=== PATIENT | female | born 1930 | race Caucasian/White ===

== ENCOUNTER 2018-05-21 18:33 | Emergency (ER) | payer OTHER ==
[~2018-05-21] VITALS: Ht 165.1 cm; Wt 66.7 kg
--- NOTE | 2018-05-21 18:35 | NUR ---
PT BIB [facility] TO ER BED 7
[2018-05-21 18:39] VITALS: BP 159/78
--- NOTE | 2018-05-21 18:43 | NUR ---
PATIENT BIB AMBULANCE TO ED WITH THE CHIEF C/O RIGHT KNEE PAIN. SWELLING RIGHT KNEE, BRIUSE NOTED. + CIRCULATION, +SENSATION. PT ABLE TO MOVE KNEE WITH PAIN. PT STATES SHE TWISTED HER LEG WHILE STANDING UP AND FELL ON HER KNEE. DENIES HITTING HEAD. NO LOC. DENIES N/V/D. SKIN IS PINK/WARM/DRY; AAOX4 WITH EVEN AND STEADY GAIT. PT DENIES ANY FEVER, CP, SOB, OR COUGH AT THIS TIME. PATIENT STATES PAIN OF 6/10 AT THIS TIME. PATIENT POSITIONED FOR COMFORT. HOB ELEVATED. BEDRAILS UP X2. BED DOWN. ER MD MADE AWARE OF PT STATUS.
--- NOTE | 2018-05-21 19:17 | NUR ---
REPORT GIVEN TO FILTER MACHINE OPERATOR RN FOR CONTINUITY OF CARE.
[2018-05-21] MEDS ORDERED: ACETAMINOPHEN 325 MG TAB PO ONE (19:25)
[2018-05-21 20:00] VITALS: BP 134/68
--- NOTE | 2018-05-21 20:33 | NUR ---
Patient discharged with v/s stable. Written and verbal after care instructions given and explained. Patient alert, oriented and verbalized understanding of instructions. Ambulatory with steady gait with assist. All questions addressed prior to discharge. ID band removed. Patient advised to follow up with PMD. Rx of ACETAMINOPHEN given. Patient educated on indication of medication including possible reaction and side effects. Opportunity to ask questions provided and answered.
== END 2018-05-21 20:33 | disposition home or self-care (01) ==
LOC: MED 18:33
DX: S80.01XA Contusion of right knee, initial encounter (principal); S80.211A Abrasion, right knee, initial encounter; E78.00 Pure hypercholesterolemia, unspecified; I10 Essential (primary) hypertension; Z86.718 Personal history of other venous thrombosis and embolism; Z96.653 Presence of artificial knee joint, bilateral; W01.0XXA Fall on same level from slipping, tripping and stumbling without subsequent striking against object, initial encounter; Y93.01 Activity, walking, marching and hiking; Y92.89 Other specified places as the place of occurrence of the external cause; Y99.8 Other external cause status
CPT/HCPCS: 73562; 81002; 99283; Q0092